=== PATIENT | female | born 1980 | race Caucasian/White ===

== ENCOUNTER 2016-06-09 23:22 | Outpatient (CLI) | payer OTHER ==
[~2016-06-09 23:22] MED LIST: IBUPROFEN800 MG PO; PRENATAL TABLE1 EAC3 PO
[2016-06-10 00:11] VITALS: BP 120/68
[2016-06-10 02:05] LABS: ADD MIUA? NO; BILIRUBIN NEGATIVE; BLOOD NEGATIVE; COLOR STRAW ((YELLOW)); GLUCOSE (STRIP) NEGATIVE; KETONES NEGATIVE; LEUKOCYTES NEGATIVE; NITRITE NEGATIVE; PROTEIN (STRIP) NEGATIVE; SPECIFIC GRAVITY 1.006 (1.000-1.030); UCUL ADDED? NO; UROBILINOGEN 0.2 MG/DL (0.2-1.0)
== END 2016-06-10 02:50 | disposition home or self-care (01) ==
LOC: EME 23:22 → EDSTATUS 23:54 → LDRP-OP 23:56 → 2WEST 23:57
PROVIDERS: Advanced Practice Midwife
DX: O26.892 Other specified pregnancy related conditions, second trimester (principal); R35.0 Frequency of micturition; R10.84 Generalized abdominal pain; Z3A.26 26 weeks gestation of pregnancy
CPT/HCPCS: 59025; 81003; 87086; G0378

== ENCOUNTER 2016-08-30 22:44 | Outpatient (CLI) | payer OTHER ==
[~2016-08-30] VITALS: Ht 160 cm; Wt 72.7 kg
[2016-08-30 23:17] VITALS: BP 118/69
[2016-08-31 01:29] VITALS: BP 112/64
== END 2016-08-31 03:40 | disposition home or self-care (01) ==
LOC: LDRP-OP → 2WEST 22:45 → LDRP-OP 10-11 16:54
DX: O47.1 False labor at or after 37 completed weeks of gestation (principal); Z3A.38 38 weeks gestation of pregnancy
CPT/HCPCS: 59025; G0378

== ENCOUNTER 2016-09-03 19:23 | Inpatient (IN) | payer OTHER ==
[~2016-09-03] VITALS: Ht 157.5 cm; Wt 92.0 kg
[2016-09-03 20:01] VITALS: BP 110/68
[2016-09-03 20:07] LABS: EOSINOPHIL (%) 0.9 % (0-5); EOSINOPHIL COUNT 0.1 K/uL (0-0.3); HEMATOCRIT 35.9 % (36.0-46.0); IMMATURE GRANULOCYTE (%) 0.5 % (0.0-0.7); LYMPHOCYTE COUNT 2.5 K/uL (1.0-2.8); MCH 29.4 PG (29.0-34.0); MCHC 33.7 G/DL (30.0-36.0); MCV 87.1 FL (83-99); MONOCYTE (%) 12.2 % (3-12); MONOCYTE COUNT 0.9 K/uL (0-0.8); NEUTROPHIL (%) 52.8 % (45-76); PLATELET COUNT 244 K/uL (156-360); RBC DIS.WIDTH-CV 13.2 % (11.8-14.6); RBC DIS.WIDTH-SD 42.3 % (39-53); RED BLOOD COUNT 4.12 M/uL (3.80-5.20); WHITE BLOOD COUNT 7.6 K/uL (4.1-10.2)
[2016-09-03 21:32] VITALS: BP 108/62
[2016-09-03 22:04] VITALS: BP 107/57
[2016-09-03 23:17] VITALS: BP 109/55
[2016-09-04] VITALS (11 sets, daily range): BP systolic 98–146; BP diastolic 53–83
[2016-09-05 06:51] LABS: BASOPHIL COUNT 0.1 K/uL (0-0.1); EOSINOPHIL (%) 2.5 % (0-5); EOSINOPHIL COUNT 0.2 K/uL (0-0.3); HEMATOCRIT 32.9 % (36.0-46.0); IMMATURE GRANULOCYTE (%) 0.4 % (0.0-0.7); LYMPHOCYTE COUNT 3.1 K/uL (1.0-2.8); MCH 29.5 PG (29.0-34.0); MCHC 33.1 G/DL (30.0-36.0); MCV 89.2 FL (83-99); MEAN PLAT.VOLUME 11.1 uM^3 (9.5-12.4); MONOCYTE COUNT 0.7 K/uL (0-0.8); PLATELET COUNT 207 K/uL (156-360); RBC DIS.WIDTH-CV 13.5 % (11.8-14.6); RED BLOOD COUNT 3.69 M/uL (3.80-5.20); WHITE BLOOD COUNT 8.1 K/uL (4.1-10.2)
[2016-09-05 07:22] VITALS: BP 111/70
[2016-09-05 14:29] VITALS: BP 115/70
[2016-09-05] MEDS ORDERED: IBUPROFEN800 MG PO (16:31)
== END 2016-09-05 18:20 | disposition home or self-care (01) | DRG 775 ==
LOC: LDRP-OP 19:23 → 2WEST 19:24 → LDRP-OP 10-11 03:49
PROVIDERS: Advanced Practice Midwife
PROC: 10E0XZZ Delivery of Products of Conception, External Approach (ICD-10-PCS; principal; 2016-09-04)
DX: O76 Abnormality in fetal heart rate and rhythm complicating labor and delivery (principal); O69.81X0 Labor and delivery complicated by cord around neck, without compression, not applicable or unspecified; O99.214 Obesity complicating childbirth; E66.9 Obesity, unspecified; Z68.30 Body mass index [BMI] 30.0-30.9, adult; Z3A.39 39 weeks gestation of pregnancy; Z37.0 Single live birth
CPT/HCPCS: 85025; 86900; 86901; G0378; J7120